=== PATIENT | male | born 1990 | race Caucasian/White ===

== ENCOUNTER 2016-11-08 13:59 | Emergency (ER) | payer SELFPAY ==
[2016-11-08] MEDS ORDERED: ACETAMINOPHEN TAB 500 MG TAB PO STA (15:52)
--- NOTE | 2016-11-08 15:56 | ED ---
Back Pain HPI - General Chief Complaint: Back Pain/Injury Stated Complaint: back pain Time Seen by Provider: 11/08/16 15:44 Source: patient Limitations: no limitations - History of Present Illness Initial Comments: 26 years old male presents with back pain, he has ongoing mild back pain issues , he should perform nitrate and back pain, worse for the last 1 day. Denies any bowel or bladder dysfunction and denies any major, or fall. He denies any weakness of his lower extremities. He did noticed increased frequency voiding denies any dysuria denies any flank pain no frequency or small nausea no vomiting, he took Advil 9:30 this morning it didn't help some extent - Related Data Home Medications Medication Instructions Recorded Confirmed Ibuprofen [Advil] 200 mg PO Q8HR PRN 11/08/16 11/08/16 Previous Rx's Medication Instructions Recorded Diclofenac Sodium [Voltaren] 50 mg PO BID #30 tablet. 11/08/16 Allergies Allergy/AdvReac Type Severity Reaction Status Date / Time No Known Allergies Allergy Verified 11/08/16 16:06 Review of Systems ROS Statement: Those systems with pertinent positive or pertinent negative responses have been documented in the HPI. ROS Other: All systems not noted in ROS Statement are negative. Past Medical History Past Medical History: No Reported History History of Any Multi-Drug Resistant Organisms: None Reported Past Surgical History: No Surgical Hx Reported Past Psychological History: Anxiety Smoking Status: Never smoker Past Alcohol Use History: None Reported Past Drug Use History: None Reported General Exam - General Exam Comments Initial Comments: General: The patient is awake and alert, in no distress, and does not appear acutely ill. Skin: Skin is warm and dry and no rashes or lesions are noted. Eye: Pupils are equal, round and reactive to light, extra-ocular movements are intact; there is normal conjunctiva bilaterally. Ears, nose, mouth and throat: There are moist mucous membranes and no oral lesions. Neck: The neck is supple, there is no tenderness or JVD. Cardiovascular: There is a regular rate and rhythm. No murmur, rub or gallop is appreciated. Respiratory: To auscultation bilateral, no wheezing no rhonchi no distress respiratory clay noticed Gastrointestinal: Soft, non-distended, non-tender abdomen without masses or organomegaly noted. There is no rebound or guarding present. Bowel sounds are unremarkable. Back: There is tenderness at T10 to T12, is also tender and mobile 100 lumbar region. Straight leg raise is negative, deep tendon reflexes are within normal range Musculoskeletal: Normal ROM, no tenderness, There is no pedal edema. There is no calf tenderness or swelling. No cords were appreciated. Neurological: CN II-XII intact, Cranial nerves III through XII are intact. There are no obvious motor or sensory deficits. Coordination appears grossly intact. Speech is normal. Psychiatric: Cooperative, appropriate mood & affect, normal judgment. Limitations: no limitations Course Vital Signs 11/08/16 14:42 Temperature 97.8 F Pulse Rate 86 Respiratory 20 Rate Blood Pressure 110/74 O2 Sat by Pulse 99 Oximetry Medical Decision Making - Lab Data Lab Results 11/08/16 Range/Units 14:10 Urine Color Yellow Urine Appearance Clear (Clear) Urine pH 6.0 (5.0-8.0) Ur Specific [place] 1.021 (1.001-1.035) Urine Protein Trace H (Negative) Urine Glucose (UA) Negative (Negative) Urine Ketones Negative (Negative) Urine Blood Negative (Negative) Urine Nitrite Negative (Negative) Urine Bilirubin Negative (Negative) Urine Urobilinogen <2.0 (<2.0) mg/dL Ur Leukocyte Esterase Negative (Negative) Disposition Clinical Impression: Back pain Disposition: HOME SELF-CARE Instructions: Acute Low Back Pain (ED) Prescriptions: Diclofenac Sodium [Voltaren] 50 mg PO BID #30 tablet. Referrals: None,Stated [Primary Care Provider] - 1-2 days
[2016-11-08 16:20] LABS: Appearance,Urine Clear (Clear); Bilirubin,Urine Negative (Negative); Glucose,Urine (UA) Negative (Negative); Ketones,Urine Negative (Negative); Leukocyte Esterase,Urine Negative (Negative); Nitrite,Urine Negative (Negative); Protein,Urine Trace (Negative); Specific Gravity,Urine 1.021 (1.001-1.035); UA Billing (MACRO vs. MICRO) CHEM; Urobilinogen,Urine <2.0 mg/dL (<2.0)
--- NOTE | 2016-11-08 16:43 | XR ---
EXAMINATION TYPE: XR thoracic spine complete DATE OF EXAM: 11/08/2016 COMPARISON: None HISTORY: Back pain TECHNIQUE: 3 views FINDINGS: There is a very slight thoracic dextroscoliosis. I see no compression fracture. There is no paraspinal mass. Posterior elements are intact. IMPRESSION: Mild dextroscoliosis is less than 10 degrees and stable compared to chest x-ray of 016. No fracture.
--- NOTE | 2016-11-08 16:44 | XR ---
EXAMINATION TYPE: XR lumbar spine with bend/flex DATE OF EXAM: 11/08/2016 COMPARISON: NONE HISTORY: Back pain TECHNIQUE: 5 views FINDINGS: There is a slight levoscoliosis. Disc spaces are normal. Posterior elements are intact. The re is no compression fracture. Sacroiliac joints appear normal. IMPRESSION: Slight levoscoliosis. Otherwise negative exam.
[2016-11-08 17:24] VITALS: BP 113/70; PULSE 65; RESP 16; TEMP 98.2
== END 2016-11-08 17:30 | disposition home or self-care (01) ==
LOC: EC 13:59
DX: M54.5 Low back pain (principal)
CPT/HCPCS: 72072; 72114; 81003; 99283

== ENCOUNTER 2017-10-11 20:33 | Emergency (ER) | payer OTHER ==
[2017-10-11 20:42] VITALS: BP 116/71; PULSE 72; RESP 18; TEMP 98.2
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
== END 2017-10-11 21:20 | disposition home or self-care (01) ==
LOC: EC 20:33
DX: T22.011A Burn of unspecified degree of right forearm, initial encounter (principal); T22.012A Burn of unspecified degree of left forearm, initial encounter; T31.0 Burns involving less than 10% of body surface; M62.830 Muscle spasm of back; V53.5XXA Driver of pick-up truck or van injured in collision with car, pick-up truck or van in traffic accident, initial encounter; W22.11XA Striking against or struck by driver side automobile airbag, initial encounter; Y92.89 Other specified places as the place of occurrence of the external cause
CPT/HCPCS: 99283

== ENCOUNTER 2020-02-12 17:51 | Emergency (ER) | payer OTHER ==
[2020-02-12] MEDS ORDERED: ACETAMINOPHEN TAB 500 MG TAB PO STA (18:28)
--- NOTE | 2020-02-12 18:28 | ED ---
Fever HPI - General Chief Complaint: Fever Stated Complaint: SOB,Fever Time Seen by Provider: 02/12/20 18:13 Source: patient, RN notes reviewed, old records reviewed Mode of arrival: ambulatory Limitations: no limitations - History of Present Illness Initial Comments: This is a 29-year-old male to the ER for evaluation, patient presents today for evaluation of a fever persistent fever. Patient has persistent fever here in the ER feels not well week fatigue. No known sick contacts was worked does position him to be working actively around other people. Patient has otherwise no travel history MD Complaint: fever, malaise, weakness -: days(s) Temperature Source: subjective Associated Symptoms: chills, myalgias, cough Treatments Prior to Arrival: none - Related Data Previous Rx's Medication Instructions Recorded Ibuprofen [Motrin] 800 mg PO TID #30 tab 10/11/17 methocarbamoL [Robaxin] 1,000 mg PO TID #30 tab 10/11/17 Allergies Allergy/AdvReac Type Severity Reaction Status Date / Time No Known Allergies Allergy Verified 02/12/20 18:03 Review of Systems ROS Statement: Those systems with pertinent positive or pertinent negative responses have been documented in the HPI. ROS Other: All systems not noted in ROS Statement are negative. Past Medical History Past Medical History: No Reported History History of Any Multi-Drug Resistant Organisms: None Reported Past Surgical History: No Surgical Hx Reported Past Psychological History: Anxiety Smoking Status: Never smoker Past Alcohol Use History: None Reported Past Drug Use History: Marijuana General Exam Limitations: no limitations Course Vital Signs 02/12/20 02/12/20 02/12/20 18:00 19:18 19:56 Temperature 101.2 F H 99.3 F Pulse Rate 119 H Respiratory 18 18 Rate Blood Pressure 123/80 O2 Sat by Pulse 99 Oximetry Medical Decision Making - Lab Data Result diagrams: 02/12/20 19:02 02/12/20 19:02 Lab Results 02/12/20 02/12/20 02/12/20 Range/Units 19:02 19:02 19:02 WBC 7.5 (3.8-10.6) k/uL RBC 5.45 (4.30-5.90) m/uL Hgb 16.7 (13.0-17.5) gm/dL Hct 49.7 (39.0-53.0) % MCV 91.4 (80.0-100.0) fL MCH 30.6 (25.0-35.0) pg MCHC 33.5 (31.0-37.0) g/dL RDW 11.7 (11.5-15.5) % Plt Count 187 (150-450) k/uL Neutrophils % 77 % Lymphocytes % 13 % Monocytes % 5 % Eosinophils % 2 % Basophils % 1 % Neutrophils # 5.8 (1.3-7.7) k/uL Lymphocytes # 1.0 (1.0-4.8) k/uL Monocytes # 0.4 (0-1.0) k/uL Eosinophils # 0.2 (0-0.7) k/uL Basophils # 0.1 (0-0.2) k/uL Sodium 139 (137-145) mmol/L Potassium 3.8 (3.5-5.1) mmol/L Chloride 103 (98-107) mmol/L Carbon Dioxide 26 (22-30) mmol/L Anion Gap 10 mmol/L BUN 9 (9-20) mg/dL Creatinine 0.92 (0.66-1.25) mg/dL Est GFR (CKD-EPI)AfAm >90 (>60 ml/min/1.73 sqM) Est GFR (CKD-EPI)NonAf >90 (>60 ml/min/1.73 sqM) Glucose 104 H (74-99) mg/dL Plasma Lactic Acid [place] 0.8 (0.7-2.0) mmol/L Calcium 9.7 (8.4-10.2) mg/dL Magnesium 1.9 (1.6-2.3) mg/dL Total Bilirubin 1.1 (0.2-1.3) mg/dL AST 31 (17-59) U/L ALT 7 (4-49) U/L Alkaline Phosphatase 87 (38-126) U/L Lactate Dehydrogenase 432 (313-618) U/L C-Reactive Protein 12.5 H (<10.0) mg/L Total Protein 8.5 H (6.3-8.2) g/dL Albumin 5.3 H (3.5-5.0) g/dL - EKG Data -: EKG Interpreted by Me (EKG is sinus rhythm 83 OH 144 QRS 106 QTC 418) Disposition Clinical Impression: Fever, Viral infection Disposition: HOME SELF-CARE Condition: Good Instructions (If sedation given, give patient instructions): Fever in Adults (ED) Is patient prescribed a controlled substance at d/c from ED?: No Referrals: Tomer Trevino MD [Primary Care Provider] - 1-2 days
[2020-02-12] MEDS ORDERED: SODIUM CHLORIDE 0.9% 500 ML 500 ML IV STA (18:29)
[2020-02-12] MEDS ORDERED: SODIUM CHLORIDE 0.9% 1,000 ML IV STA ×2 (18:29)
[2020-02-12] MEDS ORDERED: IBUPROFEN 600 MG TAB PO STA (18:29)
[2020-02-12 19:13] LABS: Basophils # (A) 0.1 k/uL (0-0.2); Basophils % (A) 1 %; Eosinophils # (A) 0.2 k/uL (0-0.7); Eosinophils % (A) 2 %; HCT 49.7 % (39.0-53.0); HGB 16.7 gm/dL (13.0-17.5); Lymphocytes % (A) 13 %; MCH 30.6 pg (25.0-35.0); MCHC 33.5 g/dL (31.0-37.0); MCV 91.4 fL (80.0-100.0); Mean Platelet Volume 6.7; Monocytes # (A) 0.4 k/uL (0-1.0); Monocytes % (A) 5 %; Neutrophils # (A) 5.8 k/uL (1.3-7.7); Neutrophils % (A) 77 %; Platelet Count 187 k/uL (150-450); RBC 5.45 m/uL (4.30-5.90); RDW 11.7 % (11.5-15.5); WBC 7.5 k/uL (3.8-10.6)
[2020-02-12 19:23] LABS: ALT 7 U/L (4-49); AST 31 U/L (17-59); African American GFR (CKD) >90 (>60 ml/min/1.73 sqM); Albumin 5.3 g/dL (3.5-5.0); Alkaline Phosphatase 87 U/L (38-126); Anion Gap 10 mmol/L; Blood Urea Nitrogen 9 mg/dL (9-20); C Reactive Protein 12.5 mg/L (<10.0); Calcium 9.7 mg/dL (8.4-10.2); Carbon Dioxide 26 mmol/L (22-30); Chloride 103 mmol/L (98-107); Glucose 104 mg/dL (74-99); LDH 432 U/L (313-618); Magnesium 1.9 mg/dL (1.6-2.3); Non-African American GFR(CKD) >90 (>60 ml/min/1.73 sqM); Potassium 3.8 mmol/L (3.5-5.1); Sodium 139 mmol/L (137-145); Total Bilirubin 1.1 mg/dL (0.2-1.3); Total Protein 8.5 g/dL (6.3-8.2)
--- NOTE | 2020-02-12 19:55 | XR ---
EXAMINATION: XR chest 1V portable DATE AND TIME: 02/12/2020 7:07 PM CLINICAL INDICATION: PHH; Suspected COVID-19 pneumonia TECHNIQUE: AP upright portable COMPARISON: None FINDINGS: The lungs are clear. The pleural spaces are negative. The cardiac silhouette is not enlarged. The remainder of the mediastinal silhouette is unremarkable. The skeletal structures and soft tissues are negative for acute findings. IMPRESSION: No acute radiographic process.
[2020-02-12 19:57] VITALS: TEMP 99.3
[2020-02-12 20:39] VITALS: BP 118/67; PULSE 85; RESP 16
== END 2020-02-12 20:38 | disposition home or self-care (01) ==
LOC: EC 17:51
DX: B34.9 Viral infection, unspecified (principal)
CPT/HCPCS: 36415; 71045; 80053; 83605; 83615; 83735; 85025; 86140; 87040; 93005; 96360; 96361; 99284